=== PATIENT | female | born 1940 | race Caucasian/White ===

== ENCOUNTER 2016-10-31 09:25 | Day surgery (SDC) | payer MEDICARE, OTHER ==
[~2016-10-31] VITALS: Ht 174 cm; Wt 72.1 kg
[2016-10-31] VITALS (11 sets, daily range): BP systolic 103–135; BP diastolic 52–68; PULSE 54–118; RESP 12–20; O2SAT 93–100
--- NOTE | 2016-10-31 08:02 | PCM.HPANE ---
Patient Data Surgeon Admitting Provider: Attending Provider:Damaso Mcdonnell DPM Primary Care Physician:Rao Wood MD Other Provider:Gregory Mcdowell Anesthesia Reason for Visit Toe Deformities, Right 2ND, 3RD And 4TH Digits Ht/WT & BMI Height (Feet): 5 Height (Inches): 8.5 Weight (Kilograms): 72.12 Body Mass Index 23.00 Allergies Coded Allergies: adhesive tape (Unverified Allergy, Unknown, UNKNOWN, 09/14/15) erythromycin base (Unverified Allergy, Unknown, UNKNOWN, 09/14/15) levofloxacin (Unverified Allergy, Unknown, UNKNOWN, 09/14/15) Past Anesthesia History Anesthesia History: Denies:: Anesthesia Reactions (minor nausea), Difficult Intubation, Fam Anesthesia Reaction, Malignant Hyperthermia Diabetes History Hx Diabetes?: No MRSA MRSA: No Medications Hypertension Medication: No Home Meds Incl Beta Lucas: No Reported Medications Cholecalciferol (Vitamin D3) (Vitamin D)1,000 Unit Capsule1,000 Unit PO DAILY # 1 BOTTLE Ref 0 10/28/16 [vitamin c] No Conflict CheckUnknown Dose DAILY 10/28/16 Albuterol Sulfate (Ventolin HFA Inhaler)200 Puff/18 Gm Inhaler1 Puff INH Q4 PRN For Wheezing #1 INHALER Ref 0 10/28/16 Denosumab (Prolia)60 Mg/1 Ml [id number] Mg SQ q6mos 10/28/16 Montelukast 10 Mg Crkwsm25 Mg PO HS Ref 0 10/28/16 Gluc HCl/Csa/Haley Hy/Hyalur AC (Glucosamine Chondroitin Cap)1 Each Capsule2 Each PO BID 10/28/16 Gabapentin 300 Mg [id number] Mg PO BID Ref 0 10/28/16 Fluticasone Propionate (Fluticasone Propionate Nasal)16 Gm Panaca.susp1 Panaca NS BID #16 GM Ref 0 10/28/16 [fiber caps] Unknown Strength No Conflict CheckUnknown Dose BID 10/28/16 Cyanocobalamin (Cyanocobalamin Injection)1,000 Mcg/1 Ml Vial1,000 Mcg IM [id number] 10/28/16 Multivits-Min/Iron/FA/Lutein (Centrum Silver Women Tablet)8 Mg Iron-400 Mcg-300 Mcg Tablet1 Each PO DAILY 10/28/16 Calcium Carbonate (Calcium)600 Mg Exfrkv412 Mg PO DAILY 10/28/16 Fluticasone/Salmeterol (Advair 250-50 Diskus)60 Puff/Inh Disk1 Puff IH BID #1 DISK Ref 0 10/28/16 Discontinued Reported Medications Biotin (Sandro Biotin)10,000 Mcg Capsule5,000 Mcg PO DAILY 09/14/15 Tazarotene (Tazorac)30 Gm Cream..g.30 Gm TP DAILY 09/14/15 Cholecalciferol (Vitamin D3) (Vitamin D)1,000 Unit Capsule1,000 Unit PO DAILY # 1 BOTTLE Ref 0 09/14/15 Ascorbic Acid (Vitamin C)1,000 Mg Tab.chew1,000 Mg PO BID Ref 0 09/14/15 Albuterol Sulfate (Ventolin HFA Inhaler)200 Puff/18 Gm Inhaler1 Puff INH Q4 PRN For Wheezing #1 INHALER Ref 0 09/14/15 Denosumab (Prolia)60 Mg/1 Ml Jvfqivj27 Mg SQ Q 6 MOS 09/14/15 Montelukast (Singulair)10 Mg Noqfmv38 Mg PO HS Ref 0 09/14/15 Glucosa Mata 2Kcl/Chondroitin Mata (Glucosamine Chondroitin Caplet)1 Each Tablet2 Each PO BID 09/14/15 Gabapentin 300 Mg Zwbclfj513 Mg PO BID Ref 0 09/14/15 Fluticasone Propionate (Flonase Allergy Relief)50 Mcg/Actuation Panaca.susp9.9 Ml NS BID 09/14/15 [Fibercaps] No Conflict Check2 Capsule PO BID 09/14/15 Cyanocobalamin (Cyanocobalamin Injection)1,000 Mcg/1 Ml Vial1,000 Mcg IM 2X/ MONTH 09/14/15 Multivits-Min/Iron/FA/Lutein (Centrum Silver Women Tablet)8 Mg Iron-400 Mcg-300 Mcg Tablet1 Each PO DAILY 09/14/15 Calcium Carbonate/Vitamin D3 (Calcium 600 + Vitamin D Sftgl)1 Each Capsule1 Each PO DAILY 09/14/15 Fluticasone/Salmeterol (Advair 250-50 Diskus)60 Puff/Inh Disk1 Puff IH BID #1 DISK Ref 0 09/14/15 Discontinued Scripts Hydrocodone-Acetaminophen 5-325 mg 1 Each Tablet1-2 Tablet PO Q4H PRN For Pain # 40 TABLET Ref 0 Prov:Pea, Jaimee S DPM 09/18/15 History History of ENT Problems?: Yes HEENT History: Denies:: Cataracts Difficult Intubation Dysphagia Glaucoma Hearing Problem Sinus Problem TMJ Other HEENT Pertinent History: wearing upper/ lower retainers - teeth are "wearing" Hx of Heart Problems?: No Cardiovascular History: Denies:: AICD Edema Heart Murmur Hypertension Irregular Heartbeat Pacemaker Peripheral Vascular Rheumatic Fever Thrombophlebitis Valvular Heart Disease Hx of Respiratory Problem?: Yes Respiratory History: Positive for:: Asthma Use of Inhalers / NEBS Denies:: COPD Emphysema Oxygen Administration Pneumonia (past hx of, bronchitis frequently) Tuberculosis Use of C-PAP Machine (sleep study done, no CPAP recommended) Hx Neurologic Problems?: Yes Neurological History: Positive for:: Dizziness (NEURO W/U FOR DIZZINESS 2014-[facility]) Headaches (stopped after estrogen dc'd, ) Seizures (hx of petit mals as young adult- stopped rx at age 35) Denies:: CVA Dementia Multiple Sclerosis Parkinson's Disease Other Neurological Pertinent: once or twice year- get tiny aura as if she was to get petit mals Hx of GI Problems?: No Gastrointestinal History: Denies:: Diverticulitis Gall Bladder Disease Gastroesphageal Reflux Gastrointestinal Bleeding Heartburn Hepatitis Hiatal Hernia Liver Disease Rectal Bleeding Hx of Problems?: No Genitourinary History: Denies:: Kidney Stones Urinary Tract Infection Female Hx: Positive for:: Problems with Breasts? (idania mastectomies. tram flap reconstruction- ) Denies:: Currently (post menopausal ) Skin History: Positive for:: History Skin Disorders? (nose, chest- keratoses removed 10/27/16) Denies:: Pressure Ulcers Hx Musculoskeletal Problems?: Yes Musculoskeletal History: Positive for:: Back Injury (osteoporosis- thoracic vertebral fx) Joint Replacement (S/P RT TKA,LT TSA, RT TSA W/ REDO'S X2) Musculoskeletal Trauma (right foot current admission problem) Osteoarthritis Denies:: Fibromyalgia Systemic Lupus Hx of Psycho/Social Problems?: No Hx Surgeries?: Yes (MULT ORTHO TOTAL JTS,BILAT MASTECTOMY W/ RECONSTRUCTION, APPY,TONSILS) Hx Any Other Health Problems?: Yes Other History: Positive for:: Cancer (BREAST) Denies:: Endocrine Disease Hospitalization Thyroid Disease History Blood Transfusions: Positive for:: Accept Blood Products? Blood Transfusions Denies:: Blood Transfuse Reaction Hx Diabetes: No Hx Alcohol Use: YesAlcoholic Drinks Per Day: one drink dailyHx Substance Use: No Smoking Status: Former Smoker Have You Smoked inLast 12 mo: No (quit 1973) Stop/Bang S-Snoring: Do You Snore Loudly: No T-Tired: feel tired, fatigued: No O-Obsered: Observed not breath: No P-Blood Pressure: treated: No B- Body Mass Index > 35 kg/m2: No A- Age over 50: Yes N- Neck Large Circumference: No G- Gender Male: No DINESH Total Score: 1 Risk Assessment Category Category 1A: Patient has history of documented sleep apnea, and HAS NOT received any narcotic, sedative or anesthesia administration during this stay. Category 1B: Patient has history of documented sleep apnea, and HAS received any narcotic , sedative or anesthesia administration during this stay Category 2: Patient has SUSPECTED Obstructive Sleep Apnea, and HAS received any narcotic , sedative or anesthesia administration during this stay. Category 3: Patient has SUSPECTED Obstructive Sleep Apnea and HAS NOT received narcotic, sedative or anesthesia administration during this stay. Category 4: Outpatient in Procedural Areas with known sleep apnea or who screen positive for High Risk via the STOP/BANG questionnaire. Exam Exam General Appearance: Alert, Oriented X3, Cooperative, No Acute Distress HEENT/AIRWAY: MP 2, Neck Movement (from), Mouth Opening (wnl) Lungs: Clear to Auscultation, Normal Air Movement Heart: Exam Unremarkable Plan Impression Patient chart reviewed, patient interviewed and anesthestic plan with risks, benefits, and alternatives discussed, and informed consent obtained. NPO Status: 09/18/15 [address] chicken broth Dr bermeo notified, states its ok ASA Physical Status: ASA2 Mod Systemic Disease Anesthetic Plan: MAC Bene/Risks/Altern/Consents: Yes HP Complete Prior to Induction: Yes Kory Holly MD Oct 31, 2016 08:02
[~2016-10-31 09:25] MED LIST: ADV250INH IH; ALBU18HF INH; CALC600T12 PO; CHOL100045 PO; CYA1000I IM; CeFAZolin 2 Gm/50 mL D5W IV Premix IV ONE; DENO60DI SQ; FLUT16SP NS; GABA-502 PO; GLUC1CAP13 PO; Lactated Ringer's 1,000 ML IV SCH; MONT10TA23 PO; MULT-1065 PO; fiber caps; vitamin c
[2016-10-31] MEDS ORDERED: Ondansetron 2 mg/mL 2 mL Inj ONE (09:26)
[2016-10-31] MEDS ORDERED: Propofol 10,000 mCg/mL 20 mL Inj ONE (09:26)
[2016-10-31] MEDS ORDERED: fentaNYL-PF 50 mCg/mL 2 mL Inj ONE (09:26)
[2016-10-31] MEDS ORDERED: EPHEDrine/NS 5 mg/mL 5 mL Syringe ONE (09:26)
[2016-10-31] MEDS ORDERED: Lactated Ringer's 1,000 ML IV SCH (11:30)
[2016-10-31] MEDS ORDERED: EPHEDrine Sulfate 50 mg/mL Inj IVPUSH PRN (11:30)
[2016-10-31] MEDS ORDERED: hydrALAZINE 20 mg/mL Inj IVPUSH PRN (11:30)
[2016-10-31] MEDS ORDERED: fentaNYL-PF 50 mCg/mL 2 mL Inj IVPUSH PRN (11:30)
[2016-10-31] MEDS ORDERED: Labetalol 5 mg/mL 4 mL Inj IV PRN (11:30)
[2016-10-31] MEDS ORDERED: Ondansetron 2 mg/mL 2 mL Inj IVPUSH PRN (11:30)
[2016-10-31] MEDS ORDERED: Atropine 0.4 mg/mL Inj IVPUSH PRN (11:30)
[2016-10-31] MEDS ORDERED: Dexamethasone 4 mg/mL Inj IVPUSH PRN (11:30)
[2016-10-31] MEDS ORDERED: Phenylephrine 10,000 mCg/mL Inj IVPUSH PRN (11:30)
[2016-10-31] MEDS ORDERED: HYDROmorphone 1 mg/mL Inj IVPUSH PRN (11:30)
[2016-10-31] MEDS ORDERED: Lactated Ringer's 500 ML IV PRN (11:30)
[2016-10-31] MEDS ORDERED: Bupivacaine-MPF 0.5% 30 mL Inj NERVEBLOCK ONE (12:00)
[2016-10-31] MEDS ORDERED: Gentamicin 40 mg/mL 2 mL Inj IRRIGATION ONE (12:00)
[2016-10-31] MEDS ORDERED: Albuterol 2.5 mg/3 mL Inhalation Solution NEB PRN (13:35)
--- NOTE | 2016-10-31 13:43 | PCM.ANEP1 ---
Post Anesthesia Phase 1 PACU Phase 1 Assessment Vital Signs Vital Signs Date Time Temp Pulse Resp B/P Pulse Ox O2 Delivery O2 Flow Rate FiO2 10/31/16 13:40 59 16 107/58 94 Room Air 10/31/16 13:35 118 15 118/59 93 Room Air 10/31/16 13:30 61 14 109/61 94 Room Air 10/31/16 13:25 66 16 103/57 95 Room Air 10/31/16 13:20 36.5 67 12 103/54 95 Room Air 10/31/16 09:56 36.4 65 16 135/68 100 Room Air Anesthetic Administered: GA Level of Alertness: Awake, talking ORTA's with Equal Strength: Yes Pain: No Nausea or Vomiting: No Oxygen Delivery: Room Air Lungs: Normal Air Movement Kory Holly MD Oct 31, 2016 13:43
--- NOTE | 2016-10-31 13:44 | PCM.ANEP2 ---
Post Anesthesia Evaluation ASA/CMS Post Anesthesia VS in Patient's Normal Range?: Yes Resp Stable; Airway Patent?: Yes CV Function & Hydration Stable: Yes Mental Status Recovered?: Yes Pain control Satisfactory?: Yes N/V Control Satisfactory?: Yes Kory Holly MD Oct 31, 2016 13:44
[2016-10-31] MEDS ORDERED: oxyCODONE-Acetamin 5-325 mg Tablet PO PRN (13:45)
[2016-10-31] MEDS ORDERED: Lactated Ringer's 1,000 ML IV ONE (13:57)
--- NOTE | 2016-11-14 22:42 | PCM.PODPO ---
Podiatry Operative Report Date of Service: Oct 31, 2016 Date of Service Pre Operative Diagnosis Hammertoe third and fourth digits right foot, sub-fourth metatarsal head metatarsalgia right foot Post Operative Diagnosis Same Procedure Hammertoe correction second and third digit right foot with arthrodesis PIPJ, Timur osteotomy fourth metatarsal, flexor tenotomy fourth digit right foot Surgeon Surgeon: Damaso Mcdonnell DPM Assistants: None Indication for Procedure Painful hammertoe third and fourth digits right foot, pain sub-fourth metatarsal head secondary to plantarflexed fourth metatarsal right foot Findings Same Details of Procedure Patient was placed on the table in the supine position and surgical timeout observed area the distal lateral right forefoot was anesthetized utilizing approximately 6 cc 0.5% Marcaine plain and a well-padded pneumatic ankle tourniquet applied. The foot was prepped and draped in the usual aseptic manner. Exsanguination was achieved utilizing an Esmarch bandage, the cuff was inflated and attention directed to the third digit. A linear incision was made overlying the PIPJ, the joint was exposed and a transverse tenotomy and capsulotomy performed. The articular surfaces were resected and a 0.045 inch K wire was inserted into the proximal phalanx and cut leaving approximately 6 mm exposed. A 0.035 inch K wire was utilized to create a hole in the intermediate phalangeal base, the toe was distracted the proximal phalangeal K wire was placed into the intermediate phalangeal base and the arthrodesis site coapted and noted to exhibit good stability and coaptation. The extensor tendon was repaired with 4-0 Vicryl, skin and subcutaneous tissues were reapproximated with 4-0 Prolene. Attention was then directed to the third digit and the same procedure performed however the interosseous K wire fixation proved insufficient to compress and stabilize the joint therefore the traditional K wire fixation technique was utilized whereby the wire was inserted through the intermediate phalangeal base exiting the toe then retrogradely inserted crossing the arthrodesis at the PIPJ level and crossing the MPJ to hold the toe in rectus alignment. Next attention was directed to the dorsal fourth metatarsal head and neck where a 2.5 cm linear incision was made. This incision was deepened via sharp and blunt dissection a dorsal capsular incision was made retracting the extensor tendon laterally and the head and neck of the metatarsal exposed and a Timur osteotomy was performed. The capital fragment was translated proximally and plantarly and fixated utilizing 2 2.0 cortical screw with good distal screw purchase and compression of the osteotomy noted. There was noted to be residual flexion contracture at the distal interphalangeal joint of the fourth digit therefore a stab flexor tenotomy was performed and closed with a single 4-0 Prolene suture. The tourniquet was released normal perfusion returned promptly to all digits and antibiotic ointment Adaptic dressing and mildly compressive bandage applied to all sites, the patient was extubated uneventfully left the operating suite in apparently satisfactory condition. There were no complications. Grafts, Implants: Implants-See Implant Record Complications There were no periprocedural complications identified. Condition Stable Anesthetic Administered: GA Drains: None Catheters: None Output, Estimated Blood Loss: 3 Blood Admin during surgery: No Surgical Cast or Splint: Post-op Boot Surgical Specimen Removed: No Specimen sent to Pathology: No Post Operative Plan Postoperative instructions have been dispensed and reviewed verbally, return appointment made 5 days postop. Damaso Mcdonnell DPM Nov 14, 2016 22:42
== END 2016-10-31 23:59 | disposition home or self-care (01) ==
LOC: SAS 09:25
PROVIDERS: ATTEND Podiatrist
DX: M20.61 Acquired deformities of toe(s), unspecified, right foot (principal); J45.909 Unspecified asthma, uncomplicated; R42 Dizziness and giddiness; Z79.899 Other long term (current) drug therapy; Z87.891 Personal history of nicotine dependence; Z85.3 Personal history of malignant neoplasm of breast
CPT/HCPCS: 28285; 28308; 76000; C1713; J0690; J1580; J2250; J2405; J7120; J7613